=== PATIENT | female | born 1995 | race Caucasian/White ===

== ENCOUNTER 2017-10-25 19:35 | Inpatient (IN) | END 2017-10-28 14:10 | disposition home or self-care (01) | DRG 775 ==

== ENCOUNTER 2018-11-25 22:39 | Emergency (ER) | payer MEDICAID ==
[~2018-11-25] VITALS: Ht 160 cm; Wt 99.3 kg
[~2018-11-25 22:39] MED LIST: IBUP-1542 PO; PREN-39 PO
[2018-11-25 22:40] VITALS: Ht 160 cm; Wt 99.3 kg
[2018-11-26] MEDS ORDERED: LIDOCAINE 4% CR TOP ONE (02:30)
[2018-11-26] MEDS ORDERED: LIDOCAINE 1% (MDV) 20 ML INJ SC ONE (02:30)
[2018-11-26] MEDS ORDERED: BACITRACIN 0.9 GM OINT TOP ONE (02:30)
[2018-11-26] MEDS ORDERED: IBUPROFEN 600 MG TAB PO ONE (02:30)
[2018-11-26] MEDS ORDERED: HYDR-4011 PO (03:52)
[2018-11-26] MEDS ORDERED: IBUP-1542 PO (03:52)
[2018-11-26] MEDS ORDERED: SULF1TAB31 PO (03:52)
[2018-11-26] MEDS ORDERED: CEPH-443 PO (03:52)
--- NOTE | 2018-11-26 03:58 | ERD ---
ER Documentation Chief Complaint Chief Complaint ABSCESS IN BUTTOCKS HPI 23-year-old female presents with complaint of abscess on her buttocks for the past 4 days. States that it hurts especially when sitting on it or when touching it. Denies any fevers, chills, dysuria, nausea, vomiting, diarrhea. Denies allergies. Denies medical problems. ROS All systems reviewed and are negative except as per history of present illness. Medications Home Meds Active Scripts Hydrocodone/Acetaminophen ([place] 5-325 Tablet) 1 Each Tablet, 1 TAB PO Q6H PRN for PAIN, #15 TAB Prov:KENNETH WASHINGTON 11/26/18 Ibuprofen* (Motrin*) 600 Mg Tab, 600 MG PO Q6 for pain, #30 TAB Prov:KENNETH WASHINGTON 11/26/18 Cephalexin* (Keflex*) 500 Mg Capsule, 500 MG PO QID for abscess for 7 Days, CAP Prov:KENNETH WASHINGTON 11/26/18 Sulfamethoxazole/Trimethoprim* (Bactrim Ds* Tablet) 1 Each Tablet, 1 TAB PO BID for abscess for 7 Days, #14 TAB Prov:KENNETH WASHINGTON 11/26/18 Ibuprofen* (Ibuprofen*) 600 Mg Tablet, 600 MG PO Q6, #60 TAB 0 Refills Prov:ELVA JONAS MD 10/27/17 Reported Medications Vits W-Ca,Fe,Fa(<1MG) ( Vitamins) 1 Tab Tablet, 1 TAB PO DAILY 01/05/15 Allergies Allergies: Coded Allergies: Pork/Porcine Containing Products (Verified Allergy, Severe, 03/23/15) HIVES No Known Drug Allergy (Unverified Allergy, Unknown, 01/05/15) PMhx/Soc Medical and Surgical Hx: pt denies Medical Hx, pt denies Surgical Hx Hx Alcohol Use: Yes Hx Substance Use: No Hx Tobacco Use: No Smoking Status: Never smoker FmHx Family History: No diabetes, No coronary disease, No other Physical Exam Vitals Vital Signs Date Temp Pulse Resp B/P (MAP) Pulse Ox O2 O2 Flow FiO2 Time Delivery Rate 11/25/18 99.2 98 17 165/65 99 22:40 (98) Physical Exam Const: No acute distress Head: Atraumatic Eyes: Normal Conjunctiva ENT: Normal External Ears, Nose and Mouth. Neck: Full range of motion. No meningismus. Resp: Clear to auscultation bilaterally Cardio: Regular rate and rhythm, no murmurs Abd: Soft, non tender, non distended. Normal bowel sounds Skin: Mildly fluctuant erythematous and mostly indurated mass noted on the upper left buttocks. Approximately 3 cm in length. There is no drainage or lymphatic streaking noted. Back: No midline or flank tenderness Ext: No cyanosis, or edema Neur: Awake and alert Psych: Normal Mood and Affect Results 24 hrs Laboratory Tests Test 11/26/18 02:23 POC Beta HCG, Qualitative NEGATIVE Current Medications Medications Dose Sig/Derek Start Time Status Last (Trade) Ordered Route PRN Stop Time Admin Dose Reason Admin Lidocaine 1 applic ONCE ONCE 11/26/18 DC 11/26/18 (Lmx 4% Plus) TOP 02:30 02:47 11/26/18 02:31 Bacitracin 1 applic ONCE ONCE 11/26/18 DC 11/26/18 (Bacitracin TOP 02:30 02:47 Oint (Ud)) 11/26/18 02:31 Ibuprofen 600 mg ONCE ONCE 11/26/18 DC 11/26/18 (Motrin) PO 02:30 02:47 11/26/18 02:31 Lidocaine 20 ml ONCE ONCE 11/26/18 DC (Xylocaine SC 02:30 1% (Mdv) 20 11/26/18 02:31 ml) Procedures/MDM I attempted to insice and drain the abscess but no pus came out. Patient was placed on Keflex and Bactrim and told to use warm compresses and sitz bath's. Patient advised to follow-up in 1 week for recheck. Patient advised to come back sooner if she had fevers, worsening symptoms, noticed enlargement of abscess. Low suspicion for perirectal abscess, sepsis, or any other emergent condition. Patient discharged with strict ER precautions. Patient advised to follow up with PMD. All questions answered at discharge. Departure Diagnosis: Primary Impression: Abscess Condition: Stable Patient Instructions: Meme-Anal Abscess, Abx Only Referrals: [facility] YOU HAVE RECEIVED A MEDICAL SCREENING EXAM AND THE RESULTS INDICATE THAT YOU DO NOT HAVE A CONDITION THAT REQUIRES URGENT TREATMENT IN THE EMERGENCY DEPARTMENT. FURTHER EVALUATION AND TREATMENT OF YOUR CONDITION CAN WAIT UNTIL YOU ARE SEEN IN YOUR DOCTORS OFFICE WITHIN THE NEXT 1-2 DAYS. IT IS YOUR RESPONSIBILITY TO MAKE AN APPOINTMENT FOR FOLOW-UP CARE. IF YOU HAVE A PRIMARY DOCTOR --you should call your primary doctor and schedule an appointment IF YOU DO NOT HAVE A PRIMARY DOCTOR YOU CAN CALL OUR PHYSICIAN REFERRAL HOTLINE AT IF YOU CAN NOT AFFORD TO SEE A PHYSICIAN YOU CAN CHOSE FROM THE FOLLOWING [facility] [id number] [facility] [address] [facility] [address] [facility] [address] [facility]. [facility] [address] [facility] [address] Additional Instructions: FOLLOW UP WITH YOUR PRIMARY CARE PHYSICIAN TOMORROW.Return to this facility if you are not improving as expected. Return in 1 week for wound check. Return sooner than that if pain worsens, or if you notice abscess enlarging, or if you have fevers or chills. KENNETH WASHINGTON Nov 26, 2018 03:57
[2018-11-26 04:10] VITALS: BP 127/55; PULSE 88; RESP 18
== END 2018-11-26 04:12 | disposition home or self-care (01) ==
LOC: FTE 22:39
DX: L02.31 Cutaneous abscess of buttock (principal)
CPT/HCPCS: 10060; 81025; Z7502; Z7610